=== PATIENT | male | born 2000 | race African-American/Black ===

== ENCOUNTER 2021-02-07 09:24 | Emergency (ER) | payer OTHER ==
[~2021-02-07] VITALS: Ht 175.3 cm; Wt 97.5 kg
--- NOTE | 2021-02-07 12:28 | REP ---
INDICATION: pop while running, dropped to knees. COMPARISON: None. TECHNIQUE: Five views lumbosacral spine. FINDINGS: There is no compression fracture or malalignment. There is normal lumbar lordosis. Disc spaces are well preserved. Posterior elements are intact. IMPRESSION: Negative lumbosacral spine series. <Electronically signed by Uriah Pepe > 02/07/21 [id number]
[2021-02-07 16:50] VITALS: BP 142/86
[2021-02-07] MEDS ORDERED: NAPR500T6 PO (16:52)
== END 2021-02-07 17:09 | disposition home or self-care (01) ==
LOC: M ED 09:24
DX: M54.50 Low back pain, unspecified (principal)